=== PATIENT | male | born 1970 | race Caucasian/White ===

== ENCOUNTER 2022-01-28 06:18 | Day surgery (SDC) | payer OTHER ==
[~2022-01-28] VITALS: Ht 208.3 cm; Wt 177.8 kg
[~2022-01-28 06:18] MED LIST: ALEVE220 MG PO; LISINOPRIL20 MG PO; MUCINEX600 MG PO; NEXIUM20 MG PO
[2022-01-28] MEDS ORDERED: MAPAP500 MG PO (06:51)
[2022-01-28] MEDS ORDERED: CLARITIN10 MG PO (06:52)
--- NOTE | 2022-01-28 08:38 | NUR ---
01/28/22 0838 Jailene Black 9 PATIENT ARRIVES TO PACU SLEEPING, RESPONDS TO REPEATED VERBAL STIMULI. BACK TO SLEEP WHEN NOT STIMULATED. RESP EVEN AND UNLABORED, NC AT 5 LITERS. PASSING GAS.
--- NOTE | 2022-01-28 10:36 | NUR ---
1015: PT BACK TO DS RM 12, RECEIVED REVERSAL AGENT AND IS TO BE MONITORED UNTIL 1156. PT DENIES NAUSEA, TOLERATES WATER WELL. PT STATES PERIUMBILICAL PAIN HAS DECREASED TO 1/10 AT THIS TIME. BREAKFAST ORDERED AT THIS TIME, CALL LIGHT WITHIN REACH. 1035: BREAKFAST DELIVERED AT THIS TIME.
--- NOTE | 2022-01-28 11:33 | NUR ---
1100: PT TOLERATES BREAKFAST WITH NO COMPLAINTS OF NAUSEA. AND DAUGHTER AT BEDSIDE. 1120: PT UP TO BATHROOM WITH RN AND ASSIST, DENIES DIZZINESS OR NAUSEA WITH AMBULATION. PT ABLE TO VOID QS, BACK TO DS RM 12. CALL LIGHT WITHIN REACH.
--- NOTE | 2022-01-28 11:58 | NUR ---
[id number]: 2 HOUR POST REVERSAL AGENT MONITORING FINISHED. PT A&O X3, RESP EVEN AND UNLABORED. DC INSTRUCTIONS PRESENTED VERBALLY AND WRITTEN TO PT AND SPOUSE. PT DRESSES SELF AND DC VIA WC FROM DS RM 12 TO SPOUSE IN PERSONAL VEHICLE TO HOME.
--- NOTE | 2022-01-28 12:26 | NUR ---
PT ALERT, ORIENTED AND HERE FOR FIRST SCOPE. ALL QUESTIONS ASKED ANSWERED. PT'S IS REMAINING IN CAR WITH THEIR DAUGHTER.PT REQUESTED PRAYER, WILL FOLLOW NEEDED
--- NOTE | 2022-01-29 05:10 | OR ---
[facility] [address] [place], [place] [address] Signed DATE OF OPERATION: 01/28/2022 SURGEON: Abena Tam MD PREOPERATIVE DIAGNOSES: 1. Screening. 2. Irritable bowel syndrome with constipation. POSTOPERATIVE DIAGNOSES: 1. 15-20 mm pedunculated polyp at 30 cm (snare/tattoo). 2. 5 mm polyp at 100 cm. 3. 3 mm polyps x2 at 20 cm/distal sigmoid colon. 4. Small right lateral external hemorrhoid. PROCEDURE: Colonoscopy with snare polypectomy, hot biopsy and injection of tattoo. ESTIMATED BLOOD LOSS: Minimal. INDICATIONS: Geovanna is a 52-year-old gentleman, asked to see me mainly for screening colonoscopy. I helped him with an upper endoscopy back in 2011. Consequently, he is familiar with this process. He has irritable bowel syndrome associated with constipation. 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 At this point in his life, he says the stress is much less. There is no family history of colon cancer or polyps. In the office, I gave him a brochure on colonoscopy. We compared that to his upper endoscopy. There is risk including, but not limited to gas bloating, crampy abdominal pain, bleeding, perforation requiring surgery, and missed diagnosis. We also discussed the need for IV conscious sedation. He had expressed understanding and wished to proceed. PROCEDURE NOTE: Geovanna was taken into our endoscopy suite and placed in the left lateral decubitus position. We used 250 mcg of fentanyl and 12 mg of Versed to cover the entire case. Most of that was utilized while we removed the polyp at 30 cm in pieces. We did a digital rectal exam, and he does have a small right lateral external hemorrhoid. He is a large man and I could barely feel the bottom of his prostate. It is starting to get indurated. He has good sphincter tone. The adult colonoscope had been introduced and advanced under direct visualization of the camera. Technically, he is not difficult to Electronically Signed By: ABENA TAM MD 01/29/22 0510 PATIENT NAME: GEOVANNA JERRY OPERATIVE REPORT DATE OF : 72 REPORT #: [id number] PHYSICIAN: ABENA TAM MD PCP: HEENA GREGG PAC REPORT IS CONFIDENTIAL AND NOT TO BE RELEASED WITHOUT AUTHORIZATION [facility] [address] [place], [place] [address] Signed pass the scope. We found a rather large 15 maybe even 20 mm pedunculated polyp at 30 cm. We started with our routine 15 mm snare and we took it out mostly in pieces. But then, we could not quite get our 13 mm snare over the entire polyp. Fortunately, we had one 15 mm snare available to us and that did go over the polyp to the base, which we removed, and then we caught that with our basket and removed it en bloc. That was placed in a separate jar from the pieces. The other pieces all come from the top of the polyp or even the side. After this, we had injected a tattoo at that area. The initial needle is quite weak and flimsy and we had to use our last remaining snare that is much stronger. Nevertheless, we did get a tattoo opposite the polypectomy site at 30 cm. We then pushed the scope up almost to the cecum itself. He required extra sedation even then he was moaning and groaning. He did take a double bowel prep and even then he had some areas of liquid particulate stool matter, I could not quite suction the area out completely. We could easily see the ileocecal valve, but his cecum was covered in liquid particulate stool matter. I hopefully the next time will be able to get all the way to the cecum with our routine Versed and fentanyl. After this, the scope was then slowly withdrawn. The other polyps were easily removed with the help of hot biopsy forceps. We re-examined the area at 30 cm and it seemed to have excellent hemostasis. The scope was then retroflexed in the rectum and no obvious pathology above the anal canal. After this, the gas was suctioned out and the colonoscope removed. Overall, Geovanna tolerated the procedure well, although he clearly has sleep apnea and metabolizes the Versed and fentanyl fairly quickly. RECOMMENDATIONS: I will see Geovanna back in my office in 7 to 14 days to review his results. He will need another colonoscopy probably within a year after these polypectomy sites heal to re-evaluate the entire colon. We will probably do this under Versed and fentanyl but if he gets trouble in the 2nd occasion, he will definitely need monitored anesthesia care in the future. MD LION Moreira/REUBEN /[id number] cc: LILLIE Bower Electronically Signed By: ABENA TAM MD 01/29/22 0510 PATIENT NAME: GEOVANNA JERRY OPERATIVE REPORT DATE OF : 72 REPORT #: [id number] PHYSICIAN: ABENA TAM MD PCP: HEENA GREGG PAC REPORT IS CONFIDENTIAL AND NOT TO BE RELEASED WITHOUT AUTHORIZATION [address] [place], [place] [address] Signed Abena Tam MD Copies: ABENA TAM MD ~ Electronically Signed By: ABENA TAM MD 01/29/22 0510 PATIENT NAME: GEOVANNA JERRY OPERATIVE REPORT DATE OF : 72 REPORT #: [id number] PHYSICIAN: ABENA TAM MD PCP: HEENA GREGG PAC REPORT IS CONFIDENTIAL AND NOT TO BE RELEASED WITHOUT AUTHORIZATION
--- NOTE | 2022-01-30 10:53 | PATH ---
[facility] [address] [place], [place] [address] Signed SPECIMEN(S): A COLON POLYP AT 30 CM SPECIMEN(S): B COLON POLYP AT 30 CM - PIECES SPECIMEN(S): C COLON POLYP AT 100 CM SPECIMEN(S): D DISTAL SIGMOID COLON POLYP AT 20 CM SPECIMEN SOURCE: A. COLON POLYP AT 30 CM B. COLON POLYP AT 30 CM - PIECES C. COLON POLYP AT 100 CM D. DISTAL SIGMOID COLON POLYP AT 20 CM CLINICAL HISTORY: Screening colonoscopy. Postop: External hemorrhoid, colon polyps. FINAL PATHOLOGIC DIAGNOSIS: A. Colon, polyp at 30 cm, polypectomy: - Tubulovillous adenoma with focal high-grade dysplasia. - Cauterized polyp stalk margin negative for dysplasia. - Negative for malignancy. B. Colon, pieces of polyp at 30 cm, polypectomy: - Fragments of tubular adenoma with foci of high-grade dysplasia. - Definitive invasive carcinoma is not identified. C. Colon, poly at 100 cm, polypectomy: - Hyperplastic polyp. - Negative for dysplasia or malignancy. D. Colon, distal sigmoid, polyps x 2 at 20 cm, polypectomy: - Hyperplastic polyps. - Negative for dysplasia or malignancy. COMMENT: As part of [facility]' Quality Improvement Program, parts A and B of this case were reviewed by another member of our pathology staff. NAL:NRT:cml:C2NR MICROSCOPIC EXAMINATION: Histologic sections of all submitted blocks are examined by light microscopy. These findings, together with the gross examination, support the pathologic diagnosis. GROSS DESCRIPTION: Four specimens are received in four containers, labeled "RR." PATIENT NAME: GEOVANNA JERRY PATHOLOGY DATE OF : 72 REPORT #: [id number] PHYSICIAN: JOSELUIS BLANCHARD PCP: HEENA GREGG PAC REPORT IS CONFIDENTIAL AND NOT TO BE RELEASED WITHOUT AUTHORIZATION [facility] [address] [place], [place] [address] Signed A. The specimen, labeled "RR, colon polyp at 30 cm," is received in formalin and consists of one contreras soft tissue fragment that measures 1.7 cm in greatest dimension. Specimen showed a white stalk that measures 0.5 cm diameter. The stalk is inked, and specimen sectioned. The specimen is entirely submitted in cassette (A1). B. The specimen, labeled "RR, colon polyp at 30 cm - pieces," is received in formalin and consists of multiple contreras soft tissue fragments that measure 2.5 x 2.5 x 0.4 cm in aggregate. The specimen is entirely submitted in cassette (B1). C. The specimen, labeled "RR, colon polyp at 100 cm," is received in formalin and consists of one contreras soft tissue fragment that measures 0.2 cm in greatest dimension. The specimen is entirely submitted in cassette (C1). D. The specimen, labeled "RR, distal sigmoid colon polyp at 20 cm," is received in formalin and consists of two contreras soft tissue fragments that measure 0.1 cm in greatest dimension. The specimen is entirely submitted in cassette (D1). JS (under the direct supervision of a pathologist) The Gross Description was prepared using a voice recognition system. The report was reviewed for accuracy; however, sound-alike word errors, addition and/or deletions may occur. If there is any question about this report, please contact Client Services. PERFORMING LABORATORY: The technical component was performed by [facility], [address] [place] [id number] (Folder Operator: Barby Ignacio MD; CLIA# [id number]). Professional interpretation was performed by [facility], [facility], [address] [place] [address] (CLIA# [id number]). Diagnostician: Tracey Green MD Pathologist Electronically Signed 01/30/2022 Copies: ~ PATIENT NAME: GEOVANNA JERRY PATHOLOGY DATE OF : 72 REPORT #: [id number] PHYSICIAN: JOSELUIS PATHOLOGY PCP: HEENA GREGG PAC REPORT IS CONFIDENTIAL AND NOT TO BE RELEASED WITHOUT AUTHORIZATION
== END 2022-01-28 12:10 | disposition home or self-care (01) ==
LOC: OPS 06:18 → DS 06:20 → OPS 07:30
PROVIDERS: ATTEND Colon & Rectal Surgery
PROC: 0DBE8ZX Excision of Large Intestine, Via Natural or Artificial Opening Endoscopic, Diagnostic (ICD-10-PCS; 2022-01-28)
PROC: 3E0H8KZ Introduction of Other Diagnostic Substance into Lower GI, Via Natural or Artificial Opening Endoscopic (ICD-10-PCS; 2022-01-28)
PROC: 0DBE8ZX Excision of Large Intestine, Via Natural or Artificial Opening Endoscopic, Diagnostic (ICD-10-PCS; principal; 2022-01-28 07:30)
DX: Z12.11 Encounter for screening for malignant neoplasm of colon (principal); D12.6 Benign neoplasm of colon, unspecified; K63.5 Polyp of colon; K64.4 Residual hemorrhoidal skin tags; K21.00 Gastro-esophageal reflux disease with esophagitis, without bleeding; K44.9 Diaphragmatic hernia without obstruction or gangrene; I10 Essential (primary) hypertension; G47.33 Obstructive sleep apnea (adult) (pediatric); E66.9 Obesity, unspecified; Z68.41 Body mass index [BMI] 40.0-44.9, adult; Z88.0 Allergy status to penicillin
CPT/HCPCS: 99153; G0500; J2250; J3010; J7121